=== PATIENT | female | born 1960 | race Caucasian/White ===

== ENCOUNTER 2016-07-25 07:18 | Emergency (ER) | payer OTHER ==
[2016-07-25 07:36] VITALS: TEMP 99; BMI 26.5
[2016-07-25] MEDS ORDERED: METOCLOPRAMIDE HCL INJECTION 10 MG/2 ML VIAL IVPB ONE (07:47)
[2016-07-25] MEDS ORDERED: SODIUM CHLORIDE 1,000 ML IV STA (07:48)
[2016-07-25] MEDS ORDERED: morphine CARPU-JECT 4 MG/1 ML DISP.SYRIN IVPUSH ONE (07:48)
--- NOTE | 2016-07-25 08:56 | PDOC ---
History of Present Illness - General Chief Complaint: Headache Stated Complaint: HEADACHE Time Seen by Provider: 07/25/16 07:32 History Source: Patient, Family Exam Limitations: No Limitations - History of Present Illness Initial Comments: 07/25/16 08:53 CHIEF COMPLAINT: Severe headache diffusely throughout the head HISTORY OF PRESENT ILLNESS: This is a 56-year-old woman who rarely gets headaches. She states yesterday she was sitting at the table in the afternoon when she started to develop a mild headache. The headache slowly got worse over time, and by last night it was more severe. She had difficulty sleeping. There was associated nausea, but no vomiting. She denies any fever and there is been no trauma. She does feel some tingling in her left forearm. There is no other numbness or weakness. There is no change in speech or vision. There is no difficulty swallowing. She does get headaches occasionally, but they have never been severe enough to go to the emergency room. REVIEW OF SYSTEMS: GENERAL/CONSTITUTIONAL: No fever or chills. No weakness. No weight change. HEAD, EYES, EARS, NOSE AND THROAT: No change in vision. No ear pain or discharge. No sore throat. Patient did have a slight sore throat a couple of days ago which has resolved. No photophobia. CARDIOVASCULAR: No chest pain or shortness of breath. RESPIRATORY: No cough, wheezing, or hemoptysis. GASTROINTESTINAL: + Positive nausea but no vomiting. No diarrhea or constipation. No rectal bleeding. GENITOURINARY: No dysuria, frequency, or change in urination. MUSCULOSKELETAL: No joint or muscle swelling or pain. No neck or back pain. No neck stiffness. SKIN AND BREASTS: No rash or easy bruising. NEUROLOGIC: + Positive headache. No vertigo. No loss of consciousness. Positive subtle numbness in the left forearm. No other areas of numbness. No weakness. No change in speech. No change in swallowing. No change in vision. PSYCHIATRIC: No depression or anxiety. ENDOCRINE: No increased thirst. No abnormal weight change. HEMATOLOGIC/LYMPHATIC: No anemia, easy bleeding, or history of blood clots. ALLERGIC/IMMUNOLOGIC: No hives or skin allergy. No latex allergy. 07/25/16 08:56 No history of drug ALLERGIES. Positive history of peanut ALLERGY. Past History - Past Medical History Allergies/Adverse Reactions: Allergies Allergy/AdvReac Type Severity Reaction Status Date / Time No Known Allergies Allergy Verified 07/25/16 07:20 Home Medications: Ambulatory Orders Naproxen [EC-Naprosyn] 375 mg PO BID #14 tablet.ec 07/25/16 Asthma: No Diabetes: No HTN: No Hypercholesterolemia: No Other medical history: DENIES - Psycho/Social/Smoking Cessation Hx Anxiety: No Suicidal Ideation: No Smoking Status: No Smoking History: Never smoked Have you smoked in the past 12 months: No Number of Cigarettes Smoked Daily: 0 Information on smoking cessation initiated: No Hx Alcohol Use: No Drug/Substance Use Hx: No Substance Use Type: None *Physical Exam - Vital Signs Last Vital Signs Temp Pulse Resp BP Pulse Ox 99 F 78 22 110/73 97 07/25/16 07:20 07/25/16 08:07 07/25/16 08:07 07/25/16 08:07 07/25/16 08:07 ED Treatment Course - LABORATORY CBC & Chemistry Diagram: 07/25/16 08:09 07/25/16 08:09 - RADIOLOGY Radiology Studies Ordered: Category Date Time Status HEAD CT WITHOUT CONTRAST [CT] Stat CT Scan 07/25/16 07:47 Taken - Medications Given in the ED: ED Medications Discontinued Medications Generic Name Dose Route Start Last Admin Trade Name Freq PRN Reason Stop Dose Admin Sodium Chloride 1,000 mls @ 1,000 mls/hr 07/25/16 07:48 07/25/16 08:06 Normal Saline - IV 07/25/16 08:47 1,000 mls/hr ASDIR STA Administration Metoclopramide HCl 10 mg 07/25/16 07:47 07/25/16 08:37 Reglan Injection - IVPB 07/25/16 07:48 10 mg ONCE ONE Administration Morphine Sulfate 4 mg 07/25/16 07:48 07/25/16 08:06 Morphine Injection - IVPUSH 07/25/16 07:49 4 mg ONCE ONE Administration Medical Decision Making - Medical Decision Making 07/25/16 11:28 Patient presents with acute severe headache. It started slow but became worse, and was associated with left arm numbness. Given that this is a new pattern of headache with symptoms of numbness on one side, head CT scan was performed. The clinical story is not suspicious for subarachnoid hemorrhage, however, the headache is atypical for this patient and more severe. Neurological examination reveals no focal deficits. Mental status, cranial nerves, strength, sensation, cerebellar, all normal. Laboratory studies reviewed: Laboratory Results - last 24 hr 07/25/16 07/25/16 08:09 08:09 WBC 6.5 RBC 4.74 Hgb 14.8 Hct 42.8 MCV 90.3 MCHC 34.5 RDW 12.9 Plt Count 211 MPV 7.9 Neutrophils % 77.1 Lymphocytes % 6.5 L Monocytes % 14.9 H Eosinophils % 1.3 Basophils % 0.2 Sodium 137 Potassium 4.1 Chloride 103 Carbon Dioxide 24 Anion Gap 10 BUN 12 Creatinine 0.8 Creat Clearance w eGFR > 60 Random Glucose 116 H Calcium 9.3 Total Bilirubin 0.4 AST 20 ALT 11 Alkaline Phosphatase 75 Total Protein 7.[address] scan reviewed, normal. No evidence of bleeding or mass. Currently, the patient is feeling much better. The headache went from a 10 down to a 3. The nausea has resolved. Patient will be given one oral Naprosyn for the mild residual pain. Prescription for Naprosyn written for home. *DC/Admit/Observation/Transfer Diagnosis at time of Disposition: Severe headache - Discharge Dispostion Disposition: HOME Condition at time of disposition: Improved Admit: No - Prescriptions Prescriptions: Naproxen [EC-Naprosyn] 375 mg PO BID #14 tablet.ec - Patient Instructions Printed Discharge Instructions: DI for Headache Additional Instructions: You were evaluated today for headache. Your neurological examination was normal. Your head CT was also normal. You are advised to rest at home today. Take Naprosyn 375 mg twice daily as needed for headache. Follow-up with your primary care physician. Return to the emergency department for any severe or progressive symptoms. - Post Discharge Activity Work/School Note: Back to Work
[2016-07-25 09:05] LABS: BASOPHIL 0.2 % (0-2.0); EOSINOPHIL 1.3 % (0-4.5); MCH 31.2 pg (25.7-33.7); MCHC 34.5 g/dl (32.0-36.0); MEAN CELL VOLUME 90.3 fl (80-96); MEAN PLT VOLUME 7.9 fl (7.5-11.1); NEUTROPHILS 77.1 % (42.8-82.8); PLATELET COUNT 211 K/MM3 (134-434); RDW 12.9 % (11.6-15.6); WHITE BLOOD COUNT 6.5 K/mm3 (4.0-10.8)
[2016-07-25 11:05] LABS: ALBUMIN 3.9 g/dl (3.5-5.0); ALK PHOS 75 U/L (32-92); ANION GAP 10 (8-16); BILIRUBIN,TOTAL 0.4 mg/dl (0.2-1.0); CALCIUM 9.3 mg/dl (8.4-10.2); CO2 24 mmol/L (22-28); COCKROFT - GAULT 75.5565; CREATININE 0.8 mg/dl (0.6-1.3); GLUCOSE,RANDOM 116 mg/dl (74-106); SGOT/AST 20 U/L (10-42); SGPT/ALT 11 U/L (10-40)
[2016-07-25] MEDS ORDERED: NAPROXEN 375 MG TABLET (FP) PO ONE (11:27)
[2016-07-25] MEDS ORDERED: NAPROXEN 375 MG TABLET (FP) ONE ×2 (11:29→11:42)
[2016-07-25 11:35] VITALS: BP 111/76; PULSE 70
[2016-07-25] MEDS ORDERED: METOCLOPRAMIDE HCL 10 MG TABLET (FP) PO ONE ×2 (11:47→11:51)
== END 2016-07-25 12:06 | disposition home or self-care (01) ==
LOC: FER 07:18
PROC: 3E033GC Introduction of Other Therapeutic Substance into Peripheral Vein, Percutaneous Approach (ICD-10-PCS; principal; 2016-07-25)
PROC: 3E033NZ Introduction of Analgesics, Hypnotics, Sedatives into Peripheral Vein, Percutaneous Approach (ICD-10-PCS; 2016-07-25)
PROC: 3E0337Z Introduction of Electrolytic and Water Balance Substance into Peripheral Vein, Percutaneous Approach (ICD-10-PCS; 2016-07-25)
DX: R51 Headache (principal)
CPT/HCPCS: 36415; 70450-TC; 80053; 85025; 96361; 96374; 96375; 99284-25

== ENCOUNTER 2016-09-01 23:23 | Emergency (ER) | payer OTHER ==
[2016-09-02 00:26] VITALS: BP 134/94; PULSE 85; TEMP 98.1; BMI 22.4
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
[2016-09-02] MEDS ORDERED: NAPROXEN 500 MG TABLET (FP) PO ONE (02:34)
[2016-09-02] MEDS ORDERED: NAPROXEN 500 MG TABLET (FP) ONE (02:40)
== END 2016-09-02 03:29 | disposition home or self-care (01) ==
LOC: JER 23:23
DX: R04.0 Epistaxis (principal); V43.52XA Car driver injured in collision with other type car in traffic accident, initial encounter; Y93.89 Activity, other specified; Y92.410 Unspecified street and highway as the place of occurrence of the external cause
CPT/HCPCS: 70486-TC; 99282-25